=== PATIENT | female | born 1960 | race Asian ===

== ENCOUNTER 2016-04-18 15:43 | Emergency (ER) | payer OTHER ==
[~2016-04-18] VITALS: Ht 165.1 cm; Wt 120.0 kg
[~2016-04-18 15:43] MED LIST: ACET500C5 PO; ALBU8.5H3 INH; CETI10CA PO; GENT5DRO28 BOTH EYES; HYDR-902 PO; PRED20TA PO; PROM5SYR2 PO
[2016-04-18 16:05] VITALS: Ht 165.1 cm; Wt 120.0 kg
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
[2016-04-18] MEDS ORDERED: KETOROLAC 30 MG INJ IM STA (19:09)
[2016-04-18] MEDS ORDERED: HYDROCODONE/APAP (10/325) TAB PO ONE (19:30)
[2016-04-18] MEDS ORDERED: IBUP800T25 PO (19:44)
[2016-04-18] MEDS ORDERED: POLY10DR19 RIGHT EYE (19:44)
[2016-04-18] MEDS ORDERED: HYDR-902 PO (20:34)
[2016-04-18 20:42] VITALS: BP 130/78; PULSE 81; RESP 18; TEMP 98.3
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
== END 2016-04-18 20:44 | disposition home or self-care (01) ==
LOC: FTE 15:43
DX: S39.92XA Unspecified injury of lower back, initial encounter (principal); H10.31 Unspecified acute conjunctivitis, right eye; S19.9XXA Unspecified injury of neck, initial encounter; I10 Essential (primary) hypertension; V49.40XA Driver injured in collision with unspecified motor vehicles in traffic accident, initial encounter
CPT/HCPCS: J1885; Z7610; 96372

== ENCOUNTER 2017-04-21 19:28 | Emergency (ER) | END 2017-04-21 23:30 | disposition home or self-care (01) ==

== ENCOUNTER 2018-09-22 10:04 | Emergency (ER) | payer OTHER ==
[~2018-09-22] VITALS: Ht 152.4 cm; Wt 129.4 kg
[~2018-09-22 10:04] MED LIST changes: +ALBU18HF INHALATION; -ALBU8.5H3 INH; +ALBU8.5H8 INH; +AMOX500C2 PO; +AZIT500T5 PO; +BENZ-6 PO; +D-ME473S2 PO; +HYDR-3980 PO; -HYDR-902 PO; +IBUP800T48 PO; +LISI-471 PO; +POLY10DR19 RIGHT EYE
[2018-09-22 10:17] VITALS: Ht 152.4 cm; Wt 129.4 kg
[2018-09-22] MEDS ORDERED: KETOROLAC 60 MG INJ IM STA (10:31)
[2018-09-22] MEDS ORDERED: CIPR500T4 PO (11:13)
[2018-09-22] MEDS ORDERED: CYCL10TA7 PO (11:13)
[2018-09-22] MEDS ORDERED: HYDR-4011 PO (11:13)
[2018-09-22] MEDS ORDERED: NAPR-985 PO (11:13)
--- NOTE | 2018-09-22 11:28 | ERD ---
ER Documentation Chief Complaint Chief Complaint C/O RIGHT LOWER BACK PAIN WITH PAIN GOES TO RIGHT LEG FOR FEW DAYS HPI 58-year-old female presenting with back pain that comes and goes for the last few days. She states it radiates down her right leg. She states she has some mild dysuria. She took Aleve at 4 AM, 7 hours prior to my evaluation with mild alleviation of symptoms. Denies any traumatic injury or falls. States she has some mild pain with movement. Medical history of hypertension hypercholesterolemia. NKDA. Surgical history . Social history denies ROS All systems reviewed and are negative except as per history of present illness. Medications Home Meds Active Scripts Cyclobenzaprine Hcl* (Cyclobenzaprine Hcl*) 10 Mg Tablet, 10 MG PO TID, #15 TAB Prov:JAZMINE WILKINS PA-C 09/22/18 Naproxen* (Naprosyn*) 500 Mg Tablet, 500 MG PO BID PRN for PAIN AND/OR INFLAMMATION, #30 TAB Prov:JAZMINE WILKINS PA-C 09/22/18 Hydrocodone/Acetaminophen ([place] 5-325 Tablet) 1 Each Tablet, 1 TAB PO Q6H PRN for PAIN, #7 TAB Prov:JAZMINE WILKINS PA-C 09/22/18 Ciprofloxacin Hcl* (Ciprofloxacin Hcl*) 500 Mg Tablet, 500 MG PO BID for 10 Days, TAB Prov:JAZMINE WILKINS PA-C 09/22/18 Dextromethorphan Hb-Promethazine Hcl* (Promethazine DM* Syrup) 473 Ml Syrup, 5 ML PO Q6 PRN for COUGH, #100 ML Prov:JAZMINE WILKINS PA-C 04/21/17 Acetaminophen* (Tylophen*) 500 Mg Capsule, 2 CAP PO Q8H PRN for PAIN AND OR ELEVATED TEMP, #20 CAP Prov:JAZMINE WILKINS PA-C 04/21/17 Ibuprofen* (Motrin*) 800 Mg Tab, 800 MG PO Q6, #30 TAB Prov:JAZMINE WILKINS PA-C 04/21/17 Azithromycin* (Azithromycin*) 500 Mg Tablet, 500 MG PO DAILY, #3 TAB Prov:LLUVIA GARNICA DO 3/4/17 Benzonatate* (Tessalon Perle*) 100 Mg Capsule, 100 MG PO Q8H PRN for COUGH, #20 CAP Prov:LLUVIA GARNICA DO 05/21/16 Amoxicillin* (Amoxicillin*) 500 Mg Cap, 500 MG PO Q8, #30 CAP Prov:LLUVIA GARNICA DO 05/21/16 Albuterol Sulfate* (Ventolin HFA*) 18 Gm Hfa.aer.ad, 2 PUFF INHALATION Q4H, #1 INHALER Prov:LLUVIA GARNICA DO 05/21/16 Hydrocodone/Acetaminophen ([place] 10-325 Tablet) 1 Each Tablet, 1 TAB PO Q6H PRN for PAIN, #15 TAB Prov:KARON HAYES NP 04/18/16 Ibuprofen* (Motrin*) 800 Mg Tab, 800 MG PO Q6, #30 TAB Prov:KARON HAYES NP 04/18/16 Polymyxin B Sulfate-TMP* (Polymyxin B-TMP Eye Drops*) 10 Ml Drops, 1 DROP RIGHT EYE QID, #1 EA Prov:KARON HAYES NP 04/18/16 Promethazine HCl/Codeine (Prometh-Codein 6.25-10 mg/5 ml) 5 Ml Syrup, 5 ML PO Q8, #240 ML Prov:JAYNE GIBBONSRAM DO 03/12/16 Prednisone* (Prednisone*) 20 Mg Tab, 20 MG PO DAILY for 3 Days, TAB Prov:SHAI,MISAEL DO 03/12/16 Albuterol Sulfate* (Proair HFA*) 8.5 Gm Hfa.aer.ad, 2 PUFF INH Q4H PRN for WHEEZING AND SOB, #1 INHALER Prov:SHAIMISAEL DEWITT DO 03/12/16 Hydrocodone/Acetaminophen ([place] 10-325 Tablet) 1 Each Tablet, 1 TAB PO Q6H PRN for PAIN, #10 TAB Prov:NORMA BLEVINS PA-C 02/22/16 Cetirizine Hcl* (Zyrtec*) 10 Mg Capsule, 10 MG PO DAILY, #15 TAB.CHEW Prov:CARINE MULLINS MD 08/05/15 Acetaminophen* (Tylophen*) 500 Mg Capsule, 1 CAP PO Q6H PRN for PAIN AND OR ELEVATED TEMP, #20 CAP Prov:CARINE MULLINS MD 08/05/15 Gentamicin Sulfate* (Gentamicin Sulfate* Ophth) 0.3% - 5 Ml Drops, 1 DROP BOTH EYES QID for 7 Days, EA Prov:CARINE MULLINS MD 08/05/15 Reported Medications Lisinopril* (Lisinopril*) 20 Mg Tablet, 20 MG PO DAILY, #30 TAB 05/21/16 Allergies Allergies: Coded Allergies: No Known Allergy (Unverified , 05/21/16) PMhx/Soc History of Surgery: No Anesthesia Reaction: No Hx Neurological Disorder: No Hx Respiratory Disorders: No Hx Cardiac Disorders: Yes (HTN) Hx Psychiatric Problems: No Hx Miscellaneous Medical Probl: Yes (HIGH CHOLESTEROL) Hx Alcohol Use: No Hx Substance Use: No Hx Tobacco Use: No FmHx Family History: No diabetes, No coronary disease, No other Physical Exam Vitals Vital Signs Date Temp Pulse Resp B/P (MAP) Pulse Ox O2 O2 Flow FiO2 Time Delivery Rate 09/22/18 97.1 81 20 167/89 96 10:17 (115) Physical Exam GENERAL: The patient is well-appearing, well-nourished, in no acute distress CHEST: Clear to auscultation bilaterally. There are no rales, wheezes or rhonchi. HEART: Regular rate and rhythm. No murmurs, clicks, rubs or gallops. ABDOMEN:Soft, nontender and nondistended. Good bowel sounds. No rebound or guarding. No gross peritonitis. No gross organomegaly or masses. BACK: No midline or flank tenderness. Tender to palpation over the right paraspinous muscles extending down the buttock. Questionable flank pain. EXTREMITIES: Equal pulses bilaterally. There is no peripheral clubbing, cyanosis or edema. No focal swelling or erythema. Full range of motion. Grossly neurovascularly intact. NEUROLOGIC: Alert and oriented. Cranial nerves II through XII intact. Motor strength in all 4 extremities with 5 out of 5 strength. Sensation grossly intact. Normal speech and gait. SKIN: There is no apparent rash or petechiae. The skin is warm and dry. Results 24 hrs Laboratory Tests Test 09/22/18 11:00 Bedside Urine pH (LAB) 6.0 Bedside Urine Protein (LAB) Trace Bedside Urine Glucose (UA) Negative Bedside Urine Ketones (LAB) Negative Bedside Urine Blood Trace-intact Bedside Urine Nitrite (LAB) Negative Bedside Urine Leukocyte Esterase (L 1+ Current Medications Medications Dose Sig/Nadine Start Time Status Last (Trade) Ordered Route PRN Stop Time Admin Dose Reason Admin Ketorolac 60 mg ONCE STAT 09/22/18 DC 09/22/18 Tromethamine IM 10:31 09/22/18 10:54 (Toradol) 10:33 Procedures/MDM ER course: Urine collected which showed trace blood and 1+ leuks. Toradol given in the ED. MDM: 58-year-old female presenting with back pain. I have considered nephrolithiasis however have low suspicion given patient has microscopic blood noted in urine. Patient's pain is likely more associated with musculoskeletal strain. She does have possible findings of urinary tract infection on urinalysis I will treat with antibiotics. I have low suspicion for other acute abdominal emergency. I do not feel blood work or imaging is indicated. I have low suspicion for cauda equina, discitis or epidural abscess. Patient has normal neuro exam to the distal extremities with no recent falls. I have low suspicion for acute fracture dislocation. Patient is discharged with strict ER precautions and told to follow-up with primary care within 1 to 2 days for close evaluation. Patient is told if symptoms change or worsen to return immediately to the ER. All questions answered at discharge Departure Diagnosis: Primary Impression: UTI (urinary tract infection) Additional Impression: Back pain Condition: Stable Patient Instructions: Understanding Urinary Tract Infections (UTIs), Back Pain (Acute Or Chronic) Referrals: [facility] YOU HAVE RECEIVED A MEDICAL SCREENING EXAM AND THE RESULTS INDICATE THAT YOU DO NOT HAVE A CONDITION THAT REQUIRES URGENT TREATMENT IN THE EMERGENCY DEPARTMENT. FURTHER EVALUATION AND TREATMENT OF YOUR CONDITION CAN WAIT UNTIL YOU ARE SEEN IN YOUR DOCTORS OFFICE WITHIN THE NEXT 1-2 DAYS. IT IS YOUR RESPONSIBILITY TO MAKE AN APPOINTMENT FOR FOLOW-UP CARE. IF YOU HAVE A PRIMARY DOCTOR --you should call your primary doctor and schedule an appointment IF YOU DO NOT HAVE A PRIMARY DOCTOR YOU CAN CALL OUR PHYSICIAN REFERRAL HOTLINE AT IF YOU CAN NOT AFFORD TO SEE A PHYSICIAN YOU CAN CHOSE FROM THE FOLLOWING [facility] [address] [facility] [address] [facility] [facility] [address] [facility] [facility] [address] [facility]. [facility] [address] [facility]. [facility] [address] Additional Instructions: FOLLOW UP WITH YOUR PRIMARY CARE PHYSICIAN TOMORROW.Return to this facility if you are not improving as expected. JAZMINE WILKINS PA-C Sep 22, 2018 11:28
[2018-09-22 11:36] VITALS: BP 130/62; PULSE 74; RESP 18
== END 2018-09-22 11:44 | disposition home or self-care (01) ==
LOC: FTE 10:04
DX: N39.0 Urinary tract infection, site not specified (principal); I10 Essential (primary) hypertension
CPT/HCPCS: 81003; 96372; J1885; Z7502